=== PATIENT | female | born 1970 | race Caucasian/White ===

== ENCOUNTER 2017-06-16 01:03 | Emergency (ER) | payer OTHER ==
[~2017-06-16] VITALS: Ht 160 cm; Wt 74.1 kg
[~2017-06-16 01:03] MED LIST: ANTABUSE PO; ANTABUSE250 MG PO; ATARAX,VISTARIL25 MG PO; Ambien PO; Ativan PO; BUSPAR PO; EVZIO0.4 MG/0.4 IM; FIORICET,ESG1 TABLET PO; Habitrol,Nicoderm CQ TD; KLONOPIN0.5 M1; LAXATIVE; MAXALT MLT5 MG PO; METHADONE; METHADONE PO; MOTRIN800 MG PO; OMEPRAZOLE; OXYCODONE HCL5 MG PO; PAXIL10 MG PO; REMERON15 M2 PO; SIMVASTATIN20 MG; STOOL SOFT-STI1 EACH PO; ULTRAM50 MG PO; ZOCOR20 MG PO; methadone PO
[2017-06-16 06:00] VITALS: BP 136/82
== END 2017-06-16 06:00 | disposition home or self-care (01) ==
LOC: EME 01:03
DX: F43.9 Reaction to severe stress, unspecified (principal); Z04.6 Encounter for general psychiatric examination, requested by authority; K21.9 Gastro-esophageal reflux disease without esophagitis; E78.5 Hyperlipidemia, unspecified; M79.7 Fibromyalgia; F17.200 Nicotine dependence, unspecified, uncomplicated; Z79.891 Long term (current) use of opiate analgesic; Z90.710 Acquired absence of both cervix and uterus; Z91.010 Allergy to peanuts
CPT/HCPCS: 99281; 99284; G0480

== ENCOUNTER 2017-07-24 21:46 | Emergency (ER) | payer OTHER ==
[~2017-07-24] VITALS: Ht 160 cm; Wt 76.5 kg
[2017-07-24 22:23] LABS: ALBUMIN 4.3 g/dL (3.2-4.8); CHLORIDE 102 mEq/L (99-109); POTASSIUM 4.6 mEq/L (3.7-5.4); SODIUM 139 mEq/L (136-147)
[2017-07-24 22:25] LABS: GLUCOSE 83 mg/dL (70-99); HEMATOCRIT 45.4 % (36.0-46.0); HEMOGLOBIN 15.2 G/DL (11.9-15.5); MCH 31.8 PG (29.0-34.0); MCHC 33.5 G/DL (30.0-36.0); PLATELET COUNT 368 K/uL (156-360); RBC DIS.WIDTH-CV 13.6 % (11.8-14.6); RBC DIS.WIDTH-SD 47.6 % (39-53); RED BLOOD COUNT 4.78 M/uL (3.80-5.20); TOTAL PROTEIN 8.2 g/dL (6.4-8.3); WHITE BLOOD COUNT 10.1 K/uL (4.1-10.2)
[2017-07-24 22:27] LABS: TOTAL BILIRUBIN 0.5 mg/dL (0.0-1.0)
[2017-07-24 22:29] LABS: ALKALINE PHOSPHATASE 70 IU/L (3-129); CREATININE 1.2 mg/dL (0.6-1.3); GFR ESTIMATE (CALCULATED) 51 mL/min/
[2017-07-24 22:30] LABS: UREA NITROGEN (BUN) 22 mg/dL (9-23)
[2017-07-24 22:31] LABS: AST (GOT) 43 IU/L (2-34)
[2017-07-24 22:32] LABS: ALT (GPT) 51 IU/L (3-49)
[2017-07-24 22:37] LABS: QUANTITATIVE HCG < 4.0 MIU/ML
[2017-07-24 22:40] LABS: APPEARANCE CLEAR ((CLEAR)); BILIRUBIN NEGATIVE; BLOOD NEGATIVE; COLOR YELLOW ((YELLOW)); GLUCOSE (STRIP) NEGATIVE; KETONES NEGATIVE; LEUKOCYTES NEGATIVE; NITRITE NEGATIVE; PROTEIN (STRIP) 30; SPECIFIC GRAVITY 1.027 (1.000-1.030); UCUL ADDED? NO
[2017-07-24 23:54] LABS: DIRECT BILIRUBIN 0.2 mg/dL (0.0-0.3)
[2017-07-24 23:55] LABS: LIPASE 51 U/L (1.0-51.0)
[2017-07-25] MEDS ORDERED: BENTYL20 MG PO (02:26)
[2017-07-25] MEDS ORDERED: PREDNISONE20 MG PO (02:26)
[2017-07-25] MEDS ORDERED: TESSALON PERLE100 MG PO (02:26)
[2017-07-25] MEDS ORDERED: ZOFRAN ODT8 MG PO (02:26)
[2017-07-25] MEDS ORDERED: ZITHROMAX250 MG PO (02:26)
[2017-07-25 02:52] VITALS: BP 150/90
== END 2017-07-25 02:53 | disposition home or self-care (01) ==
LOC: EME 21:46
DX: J40 Bronchitis, not specified as acute or chronic (principal); R11.2 Nausea with vomiting, unspecified; R10.84 Generalized abdominal pain; R19.7 Diarrhea, unspecified; R03.0 Elevated blood-pressure reading, without diagnosis of hypertension; Z90.710 Acquired absence of both cervix and uterus; M79.7 Fibromyalgia; E78.5 Hyperlipidemia, unspecified; K21.9 Gastro-esophageal reflux disease without esophagitis; F17.200 Nicotine dependence, unspecified, uncomplicated
CPT/HCPCS: 74177; 80053; 81003; 82248; 83605; 83690; 84702; 85027; 99281; 99284; J7512